=== PATIENT | female | born 1985 | race Hispanic/Latino ===

== ENCOUNTER → 2019-05-20 | Day surgery (SDC) | payer OTHER ==
[~2019-05-20] MED LIST: EPHEDRINE SULFATE INJ 50 MG/10 ML SYR ONE; FENTANYL CITRATE/PF 100MCG/2 ML INJ ONE; GLUCAGON FOR INJ 1 MG VIAL ONE; HYOSCYAMINE 0.125 MG TAB ONE; MIDAZOLAM HCL 2 MG/2 ML VIAL ONE; PROPOFOL IV EMULSION 10 MG/ML 20 ML VIAL ONE
--- OUTSIDE RECORDS SUMMARY | 2019-05-20 13:27 | XMS REPORT | Continuity of Care Document ---
Author Author [employer] Organization [employer] Address Unknown Phone Unavailable Care Team Providers Care Insurance Salesperson Name Role Phone [employer] Unavailable Unavailable Problems Problem Status Onset Date Classification Date Reported Comments Source Acute pharyngitis Active Diagnosis 09/29/2014 [facility] Hyperpigmentation of skin Active Diagnosis 04/19/2013 [facility] Rash Active Diagnosis 04/19/2013 [facility] PCOS (polycystic ovarian syndrome) Active Problem 02/09/2016 [facility] Rhinorrhea Active Diagnosis 09/18/2013 [facility] Headache Active Diagnosis 09/18/2013 [facility] Elevated BUN Active Diagnosis 05/06/2019 [facility] PCOS (polycystic ovarian syndrome) Active Problem 05/06/2019 [facility] Rectal pain Active Diagnosis 05/06/2019 [facility] Rectal bleeding Active Diagnosis 05/06/2019 [facility] Positive test Active Diagnosis 02/09/2016 [facility] Normal in first trimester Active Diagnosis 02/09/2016 [facility] Medications Medication Details Route Status Patient Instructions Ordering Provider Order Date Source Lidex as directed Externally Active 0.05 % Externally twice a day (bid) as needed (prn) Julia 04/15/2013 [facility] Mucinex 1 tablet as needed Orally Active 600 MG Orally every 12 hrs [place] [facility] Multi +DHA not defined Orally Active 27-0.8-228 MG Orally Rogerio [facility] Multi +DHA Unknown Orally Active 27-0.8-228 MG Orally Rogerio [facility] Allergies, Adverse Reactions, Alerts Substance Category Reaction Severity Reaction type Status Date Reported Comments Source N.K.D.A. Adverse Reaction Info Not Available Adverse Reaction 05/04/2019 [facility] Immunizations No Data Provided for This Section Results No Data Provided for This Section Pathology Reports No Data Provided for This Section Diagnostic Reports No Data Provided for This Section Consultation Notes No Data Provided for This Section Discharge Summaries No Data Provided for This Section History and Physicals No Data Provided for This Section Vital Signs Vital Sign Value Date Comments Source Weight 146 05/04/2019 [facility] Height 63 05/04/2019 [facility] Heart Rate 50 05/04/2019 [facility] Diastolic (mm Hg) 66 05/04/2019 [facility] Systolic (mm Hg) 105 05/04/2019 [facility] Weight 146 02/07/2016 [facility] Height 63 02/07/2016 [facility] Heart Rate 78 02/07/2016 [facility] Diastolic (mm Hg) 70 02/07/2016 [facility] Systolic (mm Hg) 122 02/07/2016 [facility] Weight 132 09/27/2014 [facility] Height 63 09/27/2014 [facility] Temperature Oral (F) 98.4 F 09/27/2014 [facility] Heart Rate 84 09/27/2014 [facility] Diastolic (mm Hg) 70 09/27/2014 [facility] Systolic (mm Hg) 108 09/27/2014 [facility] Weight 142 09/16/2013 [facility] Height 63 09/16/2013 [facility] Temperature Oral (F) 98.2 F 09/16/2013 [facility] Heart Rate 70 09/16/2013 [facility] Diastolic (mm Hg) 76 09/16/2013 [facility] Systolic (mm Hg) 106 09/16/2013 [facility] Weight 141 04/15/2013 [facility] Height 63 04/15/2013 [facility] Heart Rate 64 04/15/2013 [facility] Diastolic (mm Hg) 78 04/15/2013 [facility] Systolic (mm Hg) 108 04/15/2013 [facility] Encounters Location Location Details Encounter Type Encounter Number Reason For Visit Attending Provider ADM Date DC Date Status Source [facility] hand [id number] 04/15/2013 04/15/2013 [facility] hand [id number] 04/15/2013 04/15/2013 [facility] hand [id number] 04/15/2013 04/15/2013 [facility] hand [id number] 04/15/2013 04/15/2013 [facility] [id number] 04/15/2013 04/15/2013 [facility] FLU LIKE SYMPTOMS [id number] 09/16/2013 09/16/2013 [facility] FLU LIKE SYMPTOMS [id number] 09/16/2013 09/16/2013 [facility] FLU LIKE SYMPTOMS [id number] 09/16/2013 09/16/2013 [facility] FLU LIKE SYMPTOMS [id number] 09/16/2013 09/16/2013 [facility] CHEST CONGESTION [id number] 09/27/2014 09/27/2014 [facility] CHEST CONGESTION [id number] 09/27/2014 09/27/2014 [facility] CHEST CONGESTION [id number] 09/27/2014 09/27/2014 [facility] [id number] 06/21/2015 06/21/2015 [facility] [id number] 06/21/2015 06/21/2015 [facility] Update Demographics - Personal Info [id number] 01/16/2016 01/16/2016 [facility] Update Demographics - Personal Info [id number] 01/16/2016 01/16/2016 [facility] test [id number] 02/07/2016 02/07/2016 [facility] Procedures No Data Provided for This Section Assessment and Plan No Data Provided for This Section Plan of Care No Data Provided for This Section Social History Social History Date Source Social History ElementQualifiersDate Reported Ethnicity . Status , Is arabic your primary language? Yes February 07, 2016 children . None February 07, 2016 Tobacco Use: . Are you a: never smoker February 07, 2016 Do you have pets? . Status: Yes, Type: dog(s) February 07, 2016 Marital Status: . Shlomo February 07, 2016 Caffeine intake? . Status: No February 07, 2016 Do you exercise? . Answer: Yes, Type: cardio, walking February 07, 2016 Do you drink alcohol? . Status: Yes, Type: Wine, Beer, Liquor, How often? Rarely, How much? 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- [employer] February 07, 2016 02/07/2016 [facility] Family History Value Date Source QualifierDescriptionCommentDate Reported Maternal Grandmother Comment not available February 07, 2016 Paternal Grandmother Comment not available February 07, 2016 Siblings Comment not available February 07, 2016 Maternal Grandfather Comment not available February 07, 2016 Children Comment not available February 07, 2016 Father alive type II diabetes, melanoma February 07, 2016 Paternal Grandfather Comment not available February 07, 2016 Mother alive hypothyroid February 07, 2016 Other: Comment not available February 07, 2016 02/09/2016 [facility] QualifierDescriptionCommentDate Reported Mother alive hypothyroid Sep 27, 2014 Father alive type II diabetes, melanoma Sep 27, 2014 09/29/2014 [facility] QualifierDescriptionCommentDate Reported Mother alive hypothyroid Sep 16, 2013 Father alive type II diabetes, melanoma Sep 16, 2013 09/18/2013 [facility] QualifierDescriptionCommentDate Reported Mother alive hypothyroid Apr 15, 2013 Father alive type II diabetes, melanoma Apr 15, 2013 04/19/2013 [facility] Advance Directives No Data Provided for This Section Functional Status No Data Provided for This Section
--- OUTSIDE RECORDS SUMMARY | 2019-05-20 13:27 | XMS REPORT ---
Author Author Carol Beatty Organization [employer] Address Unknown Phone Unavailable Care Team Providers Care Bath Mix Operator Name Role Phone Carol Beatty CP Unavailable Allergies, Adverse Reactions, Alerts Substance Reaction Event Type N.K.D.A. Info Not Available Non Drug Allergy Problems Problem Type Condition Code Onset Dates Condition Status Assessment Elevated BUN R79.9 Active Problem PCOS (polycystic ovarian syndrome) E28.2 Active Assessment Rectal pain K62.89 Active Assessment Rectal bleeding K62.5 Active Medications Medication Code System Code Instructions Start Date End Date Status Dosage Multi +DHA [facility] 57287581239 27-0.8-228 MG Orally Active not defined Vital Signs Date/Time: May 04, 2019 BMI 25.86 Index Weight 146 lbs Height 63 in Cardiac Monitoring Heart Rate 50 /min Blood Pressure Diastolic 66 mm Hg Blood Pressure Systolic 105 mm Hg Results No Known Results Summary Purpose [employer]Works Submission
--- OUTSIDE RECORDS SUMMARY | 2019-05-20 13:27 | XMS REPORT ---
Author Author Sherrie Villafuerte [facility] [employer] Address Unknown Phone Unavailable Care Team Providers Care Biomedical Photographer Name Role Phone Sherrie Villafuerte Unavailable Encounters Encounter Location Date wwe [facility] Jun 21, 2015 Update Demographics - Personal Info [facility] January 16, 2016 hand [facility] Apr 15, 2013 FLU LIKE SYMPTOMS [facility] Sep 16, 2013 CHEST CONGESTION [facility] Sep 27, 2014 Problems Problem Type Condition ICD-9 Code Onset Dates Condition Status Problem PCOS (polycystic ovarian syndrome) 256.4 Active Social History Social History Element Qualifiers Date Reported Ethnicity . Status , Is indonesian your primary language? Yes Jun 21, 2015 children . None Jun 21, 2015 Tobacco Use: . Are you a: never smoker Jun 21, 2015 Do you have pets? . Status: Yes, Type: dog(s) Jun 21, 2015 Marital Status: . Shlomo Jun 21, 2015 Caffeine intake? . Status: No Jun 21, 2015 Do you exercise? . Answer: Yes, Type: cardio, walking Jun 21, 2015 Do you drink alcohol? . Status: Yes, Type: Wine, Beer, Liquor, How often? Rarely, How much? 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
--- OUTSIDE RECORDS SUMMARY | 2019-05-20 13:27 | XMS REPORT ---
Author Author Kay Garsia [facility] [employer] Address Unknown Phone Unavailable Care Team Providers Care Stereoptician Name Role Phone Kay Garsia Unavailable Encounters Encounter Location Date hand [facility] Apr 15, 2013 FLU LIKE SYMPTOMS [facility] Sep 16, 2013 Problems Problem Type Condition ICD-9 Code Onset Dates Condition Status Assessment Rhinorrhea 478.19 Active Assessment Headache 784.0 Active Problem PCOS (polycystic ovarian syndrome) 256.4 Active Medications Medication Code System Code Instructions Start Date End Date Status Dosage Mucinex [facility] [address]-89 600 MG Orally every 12 hrs Active 1 tablet as needed Social History Social History Element Qualifiers Date Reported children . None Sep 16, 2013 Tobacco Use: . Are you a: never smoker Sep 16, 2013 Marital Status: . Shlomo Sep 16, 2013 Do you drink alcohol? . Status: Yes, Type: Wine, Beer, Liquor, How often? Rarely, How much? 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
--- OUTSIDE RECORDS SUMMARY | 2019-05-20 13:27 | XMS REPORT ---
Author Author Tammy Dumont Organization [employer] Address Unknown Phone Unavailable Care Team Providers Care Supervisor Shipfitters Name Role Phone Tammy Dumont Unavailable Encounters Encounter Location Date hand [facility] Apr 15, 2013 Problems Problem Type Condition ICD-9 Code Onset Dates Condition Status Assessment Hyperpigmentation of skin 709.00 Active Assessment Rash 782.1 Active Problem PCOS (polycystic ovarian syndrome) 256.4 Active Medications Medication Code System Code Instructions Start Date End Date Status Dosage Lidex MULTUM 4980 0.05 % Externally twice a day (bid) as needed (prn) Apr 15, 2013 Jul 14, 2013 Active as directed Social History Social History Element Qualifiers Date Reported children . None Apr 15, 2013 Tobacco Use: . Are you a: never smoker Apr 15, 2013 Marital Status: . Shlomo Apr 15, 2013 Do you drink alcohol? . Status: Yes, Type: Wine, Beer, Liquor, How often? Rarely, How much? 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
--- OUTSIDE RECORDS SUMMARY | 2019-05-20 13:27 | XMS REPORT ---
Author Author Carol Beatty [facility] e[employer]Works Address Unknown Phone Unavailable Care Team Providers Care Stenciling Machine Tender Name Role Phone Carol Beatty Unavailable Allergies, Adverse Reactions, Alerts Substance Reaction Event Type N.K.D.A. Info Not Available Non Drug Allergy Encounters Encounter Location Date wwe [facility] Jun 21, 2015 Update Demographics - Personal Info [facility] January 16, 2016 test [facility] February 07, 2016 hand [facility] Apr 15, 2013 FLU LIKE SYMPTOMS [facility] Sep 16, 2013 CHEST CONGESTION [facility] Sep 27, 2014 Problems Problem Type Condition ICD-9 Code Onset Dates Condition Status Assessment Positive test Z32.01 Active Assessment Normal in first trimester Z34.91 Active Problem PCOS (polycystic ovarian syndrome) 256.4 Active Medications Medication Code System Code Instructions Start Date End Date Status Dosage [facility] [address] 27-0.8-228 MG Orally Active Unknown Social History Social History Element Qualifiers Date Reported Ethnicity . Status , Is gibraltarian your primary language? 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
--- OUTSIDE RECORDS SUMMARY | 2019-05-20 13:27 | XMS REPORT ---
Author Author Saima Zhou Organization [employer] Address Unknown Phone Unavailable Care Team Providers Care Stock Order Lister Name Role Phone Saima Zhou CP Unavailable Allergies, Adverse Reactions, Alerts Substance Reaction Event Type N.K.D.A. Info Not Available Non Drug Allergy Encounters Encounter Location Date hand [facility] Apr 15, 2013 FLU LIKE SYMPTOMS [facility] Sep 16, 2013 CHEST CONGESTION [facility] Sep 27, 2014 Problems Problem Type Condition ICD-9 Code Onset Dates Condition Status Assessment Acute pharyngitis 462 Active Social History Social History Element Qualifiers Date Reported children . None Sep 27, 2014 Tobacco Use: . Are you a: never smoker Sep 27, 2014 Marital Status: . Shlomo Sep 27, 2014 Do you drink alcohol? . Status: Yes, Type: Wine, Beer, Liquor, How often? Rarely, How much? 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
[2019-05-20 18:05] VITALS: BP 105/82
[2019-05-20 18:21] LABS: WBC,FECAL (FECAL LACTOFERRIN) NEGATIVE (NEGATIVE)
--- NOTE | 2019-05-21 01:50 | Operative Report ---
DATE OF PROCEDURE: 05/20/2019 SURGEON: John Olivier MD PROCEDURE: Colonoscopy with polypectomy and biopsies. INDICATIONS FOR COLONOSCOPY: Rectal bleeding, intermittent diarrhea, and rectal pain. MEDICATION: The patient was done under MAC. Please see anesthesiologist's note. PROCEDURE IN DETAIL: With the patient in left lateral decubitus position, flexible fiberoptic Olympus colonoscope was inserted into the rectum with ease and advanced all the way to the cecum. It was then withdrawn slowly. Mucosa overlying the cecum and ascending colon grossly appeared to be within normal limits. A single diverticulum was noted in the distal ascending colon. The transverse pretty much appeared to be grossly unremarkable. The left colon revealed some patchy mild inflammatory changes and multiple random biopsies were obtained. One polyp was removed per the cold biopsy forceps from the rectum. Also similar inflammatory findings were noted in the rectum. Biopsies were obtained. The scope was then retroflexed into the distal rectum and small internal hemorrhoids were noted none of which was actively bleeding. The scope was then straightened out, it was subsequently withdrawn after securing an adequate stool specimen that was sent for the appropriate stool studies. A minute fissure was noted on the way out. The patient tolerated the procedure well. IMPRESSION: 1. Single diverticulum, distal ascending colon. 2. Mild patchy left-sided colitis. 3. Rectal polyp, minute, removed per cold biopsy forceps. 4. Proctitis, mild. 5. Internal hemorrhoids, none actively bleeding. 6. Minute anal fissure without active bleeding. PLAN: Follow up histology. Follow up stool studies. Initiate Visbiome one p.o. b.i.d. and Bentyl 10 mg one p.o. t.i.d., Anucort-HC suppositories b.i.d. x10 days and p.r.n. John Olivier MD [facility] /[id number] cc: Sherrie Chaparro DO
[2019-05-21 14:48] LABS: C DIFFICILE TOXIN A&B AMP PROB NEGATIVE (NEGATIVE)
== END | disposition home or self-care (01) ==
LOC: OR 13:23
PROVIDERS: ATTEND Internal Medicine Gastroenterology
DX: K62.89 Other specified diseases of anus and rectum (principal); R10.9 Unspecified abdominal pain; R19.7 Diarrhea, unspecified; R14.0 Abdominal distension (gaseous); R42 Dizziness and giddiness; F41.9 Anxiety disorder, unspecified; K21.9 Gastro-esophageal reflux disease without esophagitis; K58.9 Irritable bowel syndrome, unspecified; K62.5 Hemorrhage of anus and rectum; R15.2 Fecal urgency; K62.1 Rectal polyp; K64.8 Other hemorrhoids; K60.2 Anal fissure, unspecified
CPT/HCPCS: 45380; 81025; 83630; 83993; 87045; 87177; 87328; 87493; J1610; J2250; J2704; J3010; 45378